=== PATIENT | male | born 1975 | race Caucasian/White ===

== ENCOUNTER 2016-06-30 12:40 | Inpatient (IN) | payer OTHER ==
[~2016-06-30] VITALS: Ht 180.3 cm; Wt 95.4 kg
--- NOTE | ~2016-06-30 | EKG ---
[place], [place] ELECTROCARDIOGRAM REPORT NAME: JESSICA CARPENTER UNIT #: [id number] ROOM: 406 DOCTOR: MARITA SORIA MD BIRTHDATE: [birth year] DOS: 06/30/2016 TIME: 13:05 Normal sinus rhythm at rate of 75, indeterminant access, poor precordial R-wave progression, abnormal electrocardiogram. MARITA SORIA MD CM:EKGRPT:ELECTROCARDIOGRAM REPORT [id number] MARITA SORIA MD
--- NOTE | ~2016-06-30 | ST ---
[place], [place] EXERCISE STRESS TEST REPORT NAME: JESSICA CARPENTER [facility] #: [id number] UNIT #: [id number] ROOM: 406 DOCTOR: MARITA SORIA MD BIRTHDATE: [birth year] DOS: 07/01/2016 Study was done. INDICATIONS: Chest pain. PROCEDURE: The patient walked on a full Guevara protocol for 12 minutes with an additional 45 seconds at stage 5. The resting heart rate of 74 kevon to a peak of 150, which represented 84% of his maximum predicted heart rate. The resting blood pressure of 110/70 kevon to 154/72. The patient did not reproduce his chest pain. He stopped for fatigue. He achieved a workload of 12.5 mets. No diagnostic electrocardiographic changes were seen. One minute prior to completion of the exercise protocol, he was given radionuclide intravenously. IMPRESSION: 1. Excellent exercise capacity without chest pain or diagnostic electrocardiographic changes. 2. Green treadmill score 12.8 consistent with a low probability of cardiac events in the next year. 3. Radionuclide injected. Please see the separate imaging report for further details of the patient's stress test results. MARITA SORIA MD CM:STRESS:EXERCISE STRESS TEST REPORT [id number] MARITA SORIA MD
--- NOTE | ~2016-06-30 | PR ---
[place], [place] PROGRESS NOTE [facility] [id number] UNIT #: [id number] ROOM: 406 DOCTOR: MARITA SORIA MD BIRTHDATE: [birth year] DOS: 07/01/2016 CARDIOLOGY FOLLOWUP NOTE SUBJECTIVE: The patient was seen at the cardiology stress test room today July 01, 2016, prior to his stress test. The patient has not had any further chest pain since his admission. His serial troponin levels have been normal. Hemoglobin A1c is somewhat high at 9.6. PHYSICAL EXAMINATION: VITAL SIGNS: His pulse is 77 and regular, blood pressure 144/66. He is afebrile. He weighs 95.4 kilograms with a body mass index of 29.3. HEENT: Normocephalic, atraumatic. NECK: Supple. There is no jugular distention. Carotids are full. LUNGS: Respirations are unlabored. His chest is clear to auscultation and percussion. HEART: Has regular rhythm with an S4 gallop, but no S3. EXTREMITIES: Showed no edema. We did supervise an exercise stress test. The patient walked 12 minutes 45 seconds on a full Guevara protocol and achieved 84% of his maximum predicted heart rate. He stopped for fatigue and did not reproduce his chest pain. He did not have any electrocardiographic changes with exercise. The study was felt to be very low risk. Nuclear imaging is pending. IMPRESSIONS: 1. Headache, etiology to be determined. 2. Chest pain, no evidence for acute myocardial infarction. Thus far, the patient's stress test is very low risk. 3. History of acute inferior wall ST elevation RI in April of 2013, treated with angioplasty and stenting to the right coronary artery for 100% occlusion of the vessel. 4. History of tobacco abuse. PLAN: We will review the results of the stress test when they are available, but thus far he appears to have a very low risk for major adverse cardiac events in the near future. Probably we will recommend that he continue risk factor modification. We thank the hospitalist physicians for asking our advice regarding his care. [place], [place] PROGRESS NOTE NAME: JESSICA CARPENTER [facility] #: [id number] UNIT #: [id number] ROOM: 406 DOCTOR: MARITA SORIA MD BIRTHDATE: [birth year] MARITA SORIA MD CM:PNSTEPHEN [id number] MARITA SORIA MD 07/02/16 0932 interface
[~2016-06-30 12:40] MED LIST: AMOXICILLIN500 M2 PO; AMOXICILLIN500 MG PO; APIDRA100 U/ML SC; ASPIRIN ADULT L81 M1 PO; ASPIRIN ADULT L81 MG PO; ATORVASTATIN CA40 M1 PO; BAYER ASPIRIN C81 MG PO; CLEOCIN150 MG PO; CLINDAMYCIN150 MG PO; CLOPIDOGREL BIS75 MG PO; CLOPIDOGREL75 MG PO; HUMALOG 751 UNIT/0.0 IV; HUMALOG100 UNIT/1 SQ; HYDROCODONE BIT1 T11 PO; KETOROLAC10 MG PO; LANTUS100 U/ML SC; LEVEMIR FLEX100 U/ML SC; LEVEMIR100 U/ML SC; LIPITOR40 MG PO; LISINOPRIL5 MG PO; LOMOTIL 0.025 M1 TA1 PO; Lopressor25 MG PO; METOPROLOL SR25 MG PO; Motrin,Rufen800 MG PO; NOVOLIN R100 U/ML SC; PEPCID AC20 MG PO; PEPCID20 MG PO; TRAMADOL HCL50 MG PO; ZOFRAN ODT4 MG SL
[2016-06-30 12:45] VITALS: BP 153/76
[2016-06-30] MEDS ORDERED: LEVEMIR10 ML SC (12:46)
[2016-06-30 13:20] LABS: BASO # 0.1 10*3/uL (0.0-0.1); BASO % 0.6 % (0.0-1.0); EOS # 0.2 10*3/uL (0.0-0.4); EOS % 2.1 % (1.0-4.0); HEMATOCRIT 48.5 % (42.0-52.0); HEMOGLOBIN 16.7 g/dl (14.0-18.0); LYMPH # 2.5 10*3/uL (1.3-4.4); LYMPH % 23.1 % (27.0-41.0); MEAN CELL VOLUME 91.3 fl (80.0-94.0); MEAN CORPUSCULAR HGB 31.5 pg (27.0-31.0); MEAN CORPUSCULAR HGB CONC 34.4 g/dl (33.0-37.0); MEAN PLATELET VOLUME 10.3 fl (9.6-12.3); MONO # 0.7 10*3/uL (0.1-1.0); MONO % 6.2 % (3.0-9.0); NEUT # 7.2 10*3/uL (2.3-7.9); NEUT % 67.7 % (47.0-73.0); PLATELET COUNT AUTOMATED 250 10*3/uL (130-400); RED BLOOD COUNT 5.31 10*6/uL (4.50-5.90); RED CELL DISTRI WIDTH 12.6 % (0-14.5); WHITE BLOOD COUNT 10.7 10*3/uL (4.8-10.8)
[2016-06-30 13:22] LABS: BILIRUBIN NEGATIVE (NEGATIVE); BLOOD NEGATIVE (NEGATIVE); CLARITY CLEAR (CLEAR); COLOR YELLOW (YELLOW); GLUCOSE 3+ (NEGATIVE); KETONE NEGATIVE (NEGATIVE); LEUKO ESTERASE NEGATIVE (NEGATIVE); NITRITE NEGATIVE (NEGATIVE); PROTEIN NEGATIVE (NEGATIVE); UROBILINOGEN 0.2 E.U./dl (0.2-1.0)
[2016-06-30 13:28] LABS: INTERNATIONAL NORM RATIO 0.9 (2.0-3.5)
[2016-06-30 13:35] LABS: ALBUMIN 4.1 gm/dl (3.1-4.5); ALKALINE PHOSPHATASE 108 U/L (45-117); BILIRUBIN, TOTAL 0.6 mg/dl (0.2-1.0); BUN 13 mg/dl (7-24); CARBON DIOXIDE 30 mmol/L (21-32); CHLORIDE 99 mmol/L (98-107); CKMB 4.4 ng/ml (0.5-3.6); CPK 201 U/L (39-308); EST GLOM FILT AFRICAN AMERICAN > 60 ml/min; GLUCOSE 373 mg/dL (65-99); MAGNESIUM 2.1 mg/dL (1.5-2.1); POTASSIUM 4.7 mmol/L (3.5-5.1); SGOT/AST 19 IU/L (3-35); SGPT/ALT 34 U/L (12-78); SODIUM 135 mmol/L (136-145); TOTAL PROTEIN 7.4 gm/dL (6.4-8.2)
[2016-06-30 13:40] LABS: C-REACTIVE PROTEIN < 0.29 MG/DL (0-0.3); TROPONIN I < 0.015 ng/ml (<0.045)
[2016-06-30 13:44] LABS: EPITHELIAL CELLS 0-2; URINE REFLEX COMMENT NO (NO); WBC 0-2 wbc/hpf (0-5)
[2016-06-30 15:17] LABS: LA>2 REFLEX 2 HR DRAW NOW
[2016-06-30 15:19] VITALS: BP 142/78
[2016-06-30 15:40] VITALS: BP 157/74
[2016-06-30 16:00] VITALS: BP 117/55
[2016-06-30 20:00] VITALS: BP 127/57
[2016-06-30 20:13] LABS: CPK 180 U/L (39-308)
[2016-06-30 20:14] LABS: CKMB 3.5 ng/ml (0.5-3.6)
[2016-06-30 20:19] LABS: TROPONIN I < 0.015 ng/ml (<0.045)
[2016-07-01] VITALS: BP 121/61
[2016-07-01 02:20] LABS: CKMB 3.4 ng/ml (0.5-3.6); CPK 171 U/L (39-308)
[2016-07-01 02:23] LABS: TROPONIN I < 0.015 ng/ml (<0.045)
[2016-07-01 07:40] LABS: BASO # 0.1 10*3/uL (0.0-0.1); BASO % 0.4 % (0.0-1.0); EOS # 0.3 10*3/uL (0.0-0.4); HEMATOCRIT 46.5 % (42.0-52.0); HEMOGLOBIN 15.8 g/dl (14.0-18.0); LYMPH # 2.3 10*3/uL (1.3-4.4); LYMPH % 16.5 % (27.0-41.0); MEAN CELL VOLUME 91.9 fl (80.0-94.0); MEAN CORPUSCULAR HGB 31.2 pg (27.0-31.0); MEAN PLATELET VOLUME 10.2 fl (9.6-12.3); MONO # 1.2 10*3/uL (0.1-1.0); NEUT # 9.9 10*3/uL (2.3-7.9); NEUT % 71.8 % (47.0-73.0); PLATELET COUNT AUTOMATED 239 10*3/uL (130-400); RED BLOOD COUNT 5.06 10*6/uL (4.50-5.90); RED CELL DISTRI WIDTH 12.9 % (0-14.5); WHITE BLOOD COUNT 13.8 10*3/uL (4.8-10.8)
[2016-07-01 08:00] VITALS: BP 137/59
[2016-07-01 08:11] LABS: BUN 16 mg/dl (7-24); CARBON DIOXIDE 27 mmol/L (21-32); CHLORIDE 103 mmol/L (98-107); CHOLESTEROL 164 mg/dL (<200); EST GLOM FILT AFRICAN AMERICAN > 60 ml/min; FREE T4 0.99 ng/dl (0.76-1.46); GLUCOSE 137 mg/dL (65-99); HDL CHOLESTEROL 48 mg/dl (40-60); LDL CHOLESTEROL 99 mg/dL (9-159); POTASSIUM 4.3 mmol/L (3.5-5.1); SODIUM 138 mmol/L (136-145); TRIGLYCERIDES 85 mg/dl (<150); VLDL CHOLESTEROL 17 mg/dL (6-40)
[2016-07-01 08:35] LABS: HEMOGLOBIN A1c 9.6 % (4.8-5.6)
[2016-07-01 08:46] LABS: VITAMIN D, 25-HYDROXY 30.2 ng/mL (30-100)
[2016-07-01 08:47] LABS: FOLIC ACID 19.39 ng/mL (>5.38)
[2016-07-01 12:00] VITALS: BP 141/66
[2016-07-01 16:00] VITALS: BP 160/81
== END 2016-07-01 17:33 | disposition home or self-care (01) | DRG 313 ==
LOC: ED 12:40 → EDHOLD 14:24 → 4E 15:16
PROVIDERS: Emergency Medicine; Internal Medicine Hospice and Palliative Medicine
PROC: 4A02XM4 Measurement of Cardiac Total Activity, External Approach (ICD-10-PCS; principal; 2016-07-01)
PROC: 3E033HZ Introduction of Radioactive Substance into Peripheral Vein, Percutaneous Approach (ICD-10-PCS; principal; 2016-07-01)
DX: R07.9 Chest pain, unspecified (principal); I25.2 Old myocardial infarction; E87.2 Acidosis; E87.1 Hypo-osmolality and hyponatremia; R51 Headache; I10 Essential (primary) hypertension; I25.10 Atherosclerotic heart disease of native coronary artery without angina pectoris; F17.200 Nicotine dependence, unspecified, uncomplicated; E78.00 Pure hypercholesterolemia, unspecified; K02.9 Dental caries, unspecified; Z90.49 Acquired absence of other specified parts of digestive tract; Z95.5 Presence of coronary angioplasty implant and graft; Z82.49 Family history of ischemic heart disease and other diseases of the circulatory system; Z82.5 Family history of asthma and other chronic lower respiratory diseases; Z83.3 Family history of diabetes mellitus; Z79.82 Long term (current) use of aspirin; Z79.4 Long term (current) use of insulin; Z79.899 Other long term (current) drug therapy

== ENCOUNTER → 2016-08-04 | Outpatient (CLI) | payer OTHER ==
[~2016-08-04] MED LIST changes: +LEVEMIR10 ML SC
== END ==
LOC: MRI 07-27 14:00
DX: R41.3 Other amnesia (principal); R41.0 Disorientation, unspecified; I10 Essential (primary) hypertension; J34.1 Cyst and mucocele of nose and nasal sinus

== ENCOUNTER → 2016-08-05 | Outpatient (CLI) | payer OTHER | LOC: MRI 11:00 → CP 11:31 | DX: R41.3 Other amnesia (principal) ==

== ENCOUNTER 2016-11-25 19:33 | Emergency (ER) | payer OTHER ==
[~2016-11-25] VITALS: Ht 180.3 cm; Wt 99.8 kg
[2016-11-25 20:05] LABS: BASO # 0.1 10*3/uL (0.0-0.1); BASO % 0.7 % (0.0-1.0); EOS # 0.3 10*3/uL (0.0-0.4); EOS % 2.4 % (1.0-4.0); HEMATOCRIT 45.5 % (42.0-52.0); HEMOGLOBIN 15.5 g/dl (14.0-18.0); LYMPH # 3.3 10*3/uL (1.3-4.4); LYMPH % 28.5 % (27.0-41.0); MEAN CELL VOLUME 90.5 fl (80.0-94.0); MEAN CORPUSCULAR HGB 30.8 pg (27.0-31.0); MEAN CORPUSCULAR HGB CONC 34.1 g/dl (33.0-37.0); MEAN PLATELET VOLUME 9.9 fl (9.6-12.3); MONO # 1.1 10*3/uL (0.1-1.0); MONO % 9.7 % (3.0-9.0); NEUT # 6.6 10*3/uL (2.3-7.9); NEUT % 58.3 % (47.0-73.0); PLATELET COUNT AUTOMATED 273 10*3/uL (130-400); RED BLOOD COUNT 5.03 10*6/uL (4.50-5.90); RED CELL DISTRI WIDTH 12.2 % (0-14.5); WHITE BLOOD COUNT 11.4 10*3/uL (4.8-10.8)
[2016-11-25 20:26] LABS: ALBUMIN 4.2 gm/dl (3.1-4.5); ALKALINE PHOSPHATASE 111 U/L (45-117); BUN 20 mg/dl (7-24); CHLORIDE 98 mmol/L (98-107); CREATININE 1.26 mg/dL (0.70-1.30); POTASSIUM 3.8 mmol/L (3.5-5.1); SGOT/AST 15 IU/L (3-35); SGPT/ALT 37 U/L (12-78); SODIUM 135 mmol/L (136-145); TOTAL PROTEIN 7.6 gm/dL (6.4-8.2)
[2016-11-25 20:27] LABS: TROPONIN I < 0.015 ng/ml (<0.045)
== END 2016-11-25 22:10 | disposition left against medical advice (07) ==
LOC: ED 19:33
PROVIDERS: Student in an Organized Health Care Education/Training Program
DX: R07.9 Chest pain, unspecified (principal); E11.65 Type 2 diabetes mellitus with hyperglycemia; F17.200 Nicotine dependence, unspecified, uncomplicated; E78.00 Pure hypercholesterolemia, unspecified; I25.2 Old myocardial infarction; I25.10 Atherosclerotic heart disease of native coronary artery without angina pectoris; I10 Essential (primary) hypertension; Z90.49 Acquired absence of other specified parts of digestive tract; Z95.5 Presence of coronary angioplasty implant and graft; Z79.899 Other long term (current) drug therapy; Z79.82 Long term (current) use of aspirin; Z79.4 Long term (current) use of insulin

== ENCOUNTER 2017-05-17 06:29 | Inpatient (IN) | payer OTHER ==
[2017-05-17] VITALS (12 sets, daily range): BP systolic 130–169; BP diastolic 58–83
[~2017-05-17] VITALS: Ht 177.8 cm; Wt 93.4 kg
--- NOTE | ~2017-05-17 | CON ---
[place], [place] REPORT OF CONSULTATION NAME: JESSICA CARPENTER [facility] #: [id number] UNIT #: [id number] ROOM: 504 DOCTOR: ANIL CHOUDHURY MD BIRTHDATE: [birth year] DOS: 05/18/2017 PULMONARY CONSULTATION EVALUATION AND MANAGEMENT CONSULTATION REQUESTED BY: Hospitalist services. REASON FOR CONSULTATION: Assessment of the current diabetic ketoacidosis management. HISTORY OF PRESENT ILLNESS: This is a 42-year-old white male with last known history of type 2 diabetes mellitus, insulin requiring, at the age of 20-25 years old taking insulin Levemir as well as regular insulin. The patient underwent recent teeth extraction, which were described to be infected and has been ordered the antibiotic as clindamycin and amoxicillin by the dentist. The patient stated that he was noted with symptoms of generalized weakness and fatigue for this patient as well as nausea and vomiting. He could not take his antibiotic and stated he has not injected his insulin as well as a regular insulin, but was taking the Levemir insulin. The patient was noted with progressive increase in his mental status changes for this patient and lethargy. The patient was noted with vomiting intermittently as well. He has been assessed in the Emergency Room with diagnosis of acute diabetic ketoacidosis was established, and the patient was admitted to the hospital for further medical management. The patient has been started with insulin drip with changes of the drip for the patient made based on the progression with diabetic ketoacidosis. The insulin drip for the patient were discontinued last night as the diabetic ketoacidosis resolved and he was switched to his long-acting and short-acting insulin coverage after that. His nausea and vomiting seemed to be resolved completely at this time. The patient has not been noted any symptoms of abdominal pain. REVIEW OF SYSTEMS: CONSTITUTIONAL: Fatigue and tiredness noted without symptoms of fever or chills. EYES: Denies any burning, redness, or tenderness. EARS, NOSE, THROAT SYMPTOMS: Denies sore throat, hoarseness, otalgia, postnasal drainage, or epistaxis. Denies any dental pain. Still has a suture in place and stated that it needs to be removed as per dentist today. The patient denied any jaw pain. Has not reported any pain or swelling on the cheek. CARDIOVASCULAR: Denies angina pain, edema or pain in lower extremities. GASTROINTESTINAL: Dysphagia, nausea, vomiting, diarrhea, abdominal pain, hematemesis, melena, hematochezia at this time, but reported with the nausea and vomiting the patient at home that seemed to be resolved after hospitalization. GENITOURINARY: No dysuria, suprapubic pain, hematuria. MUSCULOSKELETAL: No acute joint pain, redness or tenderness or deformities. CENTRAL NERVOUS SYSTEM: The patient has not been reported any seizure at home. Noted changes in mental status. There were no focal neurologic deficits reported with symptoms of headache or diplopia reported. Remaining review of systems of the patient was completed that was noted all negative. [place], [place] REPORT OF CONSULTATION NAME: JESSICA CARPENTER UNIT #: [id number] ROOM: [facility] DOCTOR: KAM MURPHY MD,ANIL BIRTHDATE: [birth year] PAST MEDICAL HISTORY: 1. Coronary artery disease. 2. Essential hypertension. 3. Coronary artery disease with past myocardial infarction. 4. Hypercholesterolemia. 5. Type 2 insulin requiring diabetes mellitus. 6. Recent impacted teeth for the patient, which has been removed by the dentist last . PAST SURGICAL HISTORY: 1. Appendectomy. 2. Teeth extraction. 3. Cardiac catheterization. 4. Cholecystectomy. 5. Coronary artery stents insertion with cardiac catheterization. SOCIAL HISTORY: The patient stated that he is , lives at home, has 2 children, and currently lives with girlfriend. Denies any history of alcohol use, illicit drug use. Denies any history of alcohol dependence. He had been noted history of tobacco use with a pack of cigarettes per day. FAMILY HISTORY: The patient's father 67-year-old with history of COPD. Mother 65-year-old with history of diabetes mellitus. One of the brother at the age 4040 years old with complication of acute myocardial infarction. HOME MEDICATIONS: Listed as use of aspirin, Lipitor, Levemir insulin, lisinopril, and metoprolol. DRUG ALLERGY: REPORTED ALLERGY TO THE PENICILLIN, BUT THE PATIENT COULD TAKE THE AMOXICILLIN. ALLERGY TO THE PENICILLIN SIDE EFFECTS WERE NOT KNOWN STATE HAS BEEN TOLD BY HIS FAMILY MEMBERS AND HIS MOM. PHYSICAL EXAMINATION: GENERAL: A 42-year-old white male, currently sitting on the bed without any acute distress this morning of assessment. The patient's height was recorded on admission 5 feet 10 inches, weight of 93 kg, BMI 29.5. VITAL SIGNS: Normal temperature of the patient noted since admission, respiratory rate of 28-16, heart rate of 118, sinus tachycardia at 81 this morning, blood pressure 149/69-122/72 this morning. The intake for the patient recorded as 5300 mL, output 700 mL. Pulse oxygen saturation on room air was 96% saturation. HEENT: Head was atraumatic. Eyes nonicterus. Oral mucosa was noted moist with sutures are noted in the teeth for this patient as well. There was no obvious abscess or drainage. NECK: Supple. CARDIOVASCULAR: S1, S2 is audible. LUNGS: Noted clear of any wheezing or crackles. Breaths are noted [id number] diminished bilaterally. ABDOMEN: Soft with [id number] obesity without any tenderness. [place], [place] REPORT OF CONSULTATION NAME: JESSICA CARPENTER UNIT #: [id number] ROOM: [facility] DOCTOR: ANIL CHOUDHURY MD BIRTHDATE: [birth year] EXTREMITIES: The patient noted without any edema, clubbing, or cyanosis. CENTRAL NERVOUS SYSTEM: Cranial nerves 2-12 intact. No focal deficit. MUSCULOSKELETAL: Without any acute deformities. SKIN: No lesions or rashes. LABORATORY DATA: The patient's lactic acid on admission noted 4.1, follow up lactic acid 2.3 and at 1.7. CBC of the patient on admission yesterday, WBC count severely elevated at 38.1, hemoglobin and hematocrit normal, and platelet count 413,000. CMP of the patient of 05/17/2017 on admission, glucose at 757, BUN 32, creatinine 2.16. Sodium 131, potassium 5.3, chloride of 89. The anion gap was noted as 37 on admission with that labs. Troponin was normal. The reflux glucose 757. Ketone for the patient noted positive 1:6 dilution. The arterial blood gas of the patient, pH of 7.16, pCO2 of 23, pO2 of 118 were done in the Emergency Room on room air. The BMP of the patient following that at 10:18 a.m. glucose 527, BUN 34, creatinine 2.12. CO2 of 13. At that time, the anion gap for this patient was still noted elevated at 24. Several of the chemistries was done for the patient; last chemistry at that time the patient noted with the resolution diabetic ketoacidosis, shows glucose 116, BUN 26, creatinine 1.32. CO2 was normal. Potassium normal at 4.3 and sodium 142. The alkaline phosphatase of 153. The CBC of this morning, WBC 35.4, hemoglobin and hematocrit normal, platelet count were normal. Hemoglobin A1c with the patient noted 9.0. The C-reactive protein was normal. ESR was noted as 5. The patient had a CT scan of the abdomen and pelvis that was done in the Emergency Room yesterday was noted essentially normal study. One view chest x-ray of the patient does not show any acute pulmonary infiltration. IMPRESSION: 1. The patient who has been currently admitted to the hospital noted with severe acute diabetic ketoacidosis with possibly of underlying infection to the teeth with abscess formation can be completely excluded as a cause. 2. Acute kidney injury secondary to acute diabetic ketoacidosis. 3. Severe acidosis and lactic acidosis combination from infection and volume contraction would be very likely. 4. The patient with history of insulin requiring type 2 diabetes mellitus. 5. History of chronic nicotine abuse with clinical suspicion of chronic obstructive pulmonary disease as well, but there was no finding of acute exacerbation. The patient does not have past pulmonary function test performed. 6. History of coronary artery disease at younger age with the patient of myocardial infarction as well that in one of the brothers at age of 4040 years old from acute myocardial infarction. 7. Mild obesity as well. PLAN OF TREATMENT: Monitor culture results for the patient. Obtain the x-ray of the jaw for this patient at first step and if necessary CT scan to exclude any abscess in the jaw area. Empirical use of the antibiotic at this time as clindamycin intravenously was started. The patient will be continued on insulin coverage with the short acting and long-acting insulin, close monitoring of the blood glucose for the patient to be continued. The patient's blood glucose was noted at 8:00 a.m. at 281, prior to that was at 211. Prevent any hypoglycemia. Supportive therapy, plan of management. If any abscess found for this patient [place], [place] REPORT OF CONSULTATION NAME: JESSICA CARPENTER UNIT #: [id number] ROOM: [facility] DOCTOR: ANIL CHOUDHURY MD BIRTHDATE: [birth year] in the deep area or in the jaw, the patient most likely will require consultation by the ENT for further medical management. IV fluids at this time will be completely discontinued, which was switched to the half normal saline last night as the patient start eating food with diabetic diet. Deep vein thrombosis prophylaxis. Total time pulmonary critical care evaluation and management of the patient today was 37 minutes. ANIL HUMPHREY MD CM:CONSTR:REPORT OF CONSULTATION 1329 05/18/171951 interface
--- NOTE | ~2017-05-17 | PR ---
[place], [place] PROGRESS NOTE NAME: JESSICA CARPENTER [facility] #: [id number] UNIT #: [id number] ROOM: 504 DOCTOR: KAM MURPHY MD,ANIL BIRTHDATE: [birth year] DOS: 05/19/2017 SUBJECTIVE: The patient noted comfortable at this time. He is transferred to medical floor after resolution of diabetic ketoacidosis. He has not reported any symptoms of hemoptysis or any chest pain. The patient has x-rays of the jaw completed yesterday. Facial bone does not show any evidence of osteomyelitis or other abnormalities including suspected abscess. The patient denies symptoms of nausea or vomiting at this time, shortness of breath, coughing, sputum expectoration, headache, dizziness, or fatigue. The remaining systems were reviewed of the patient, they were noted all negative. OBJECTIVE: VITAL SIGNS: For the patient, which has been recorded shows a normal temperature, respiratory rate of 18, heart rate 68, blood pressure 135/72. The pulse oxygen saturation was recorded as 98% on room air. HEENT: Examination shows head was atraumatic. Eyes nonicterus. NECK: Supple. Oral mucosa was moist. There were no signs of active infection or drainage in the mouth. Previously removed teeth area appeared to be healing well. CARDIOVASCULAR: S1, S2 is audible. LUNGS: The patient was noted without any wheezing or crackles at the present time. ABDOMEN: Soft. Mild to moderate obesity. Bowel sounds present. EXTREMITIES: Without any edema. SKIN: Visible skin, no lesions or rashes. MUSCULOSKELETAL: Without any acute deformities. CENTRAL NERVOUS SYSTEM: Intact. LABORATORY DATA: Reviewed of the lab of the patient for today's visit, x-ray of the facial bones was noted essentially without any radiologic abnormality. CBC of the patient that was done on 05/19/2017, WBC count 17.8, hemoglobin 12.7, hematocrit 37.8, platelet count 126,000. The CMP of the patient this morning, glucose 122, BUN normal, creatinine normal. IMPRESSION: 1. The patient with leukocytosis, which seemed to be resolving partly, may be resulting from diabetic ketoacidosis, volume contraction, and possible superficial infection of the patient with previous teeth infection of the patient as well. 2. The patient with moderate obesity as well. 3. Resolution of the metabolic acidosis of the patient completely. PLAN OF MANAGEMENT: Continue with the antibiotics for this patient, bronchodilators. Medical management of the diabetes mellitus to be continued with adjustment of his insulin coverage. Supportive care, other therapy, plan of management. Usual care. DVT prophylaxis. Consideration for possible home discharge on oral medication might be done tomorrow depending on further improvement in the overall medical status. [place], [place] PROGRESS NOTE NAME: JESSICA CARPENTER UNIT #: [id number] ROOM: [facility] DOCTOR: ANIL CHOUDHURY MD BIRTHDATE: [birth year] ANIL HUMPHREY MD CM:PNTRANS [id number] ANIL MURPHY MD 05/19/17 2315 interface
--- NOTE | ~2017-05-17 | EKG ---
[place], [place] ELECTROCARDIOGRAM REPORT NAME: JESSICA CARPENTER UNIT #: [id number] ROOM: 504 DOCTOR: KAM MURPHY MD,ANIL BIRTHDATE: [birth year] DOS: 05/17/2017 TIME: 6:59 a.m. INTERPRETATION: Sinus tachycardia noted, heart rate 118 beats per minute with peak T-wave. The LVH criteria could be met for this patient to chest leads assessment. IMPRESSION: The tachycardia would be considered as a sinus tachycardia. ANIL HUMPHREY MD CM:EKGRPT:ELECTROCARDIOGRAM REPORT 1212 1312 ANLI MURPHY MD
[2017-05-17 06:55] LABS: HEMATOCRIT 47.7 % (42.0-52.0); HEMOGLOBIN 16.6 g/dl (14.0-18.0); MEAN CELL VOLUME 93.2 fl (80.0-94.0); MEAN CORPUSCULAR HGB 32.4 pg (27.0-31.0); MEAN CORPUSCULAR HGB CONC 34.8 g/dl (33.0-37.0); MEAN PLATELET VOLUME 10.5 fl (9.6-12.3); PLATELET COUNT AUTOMATED 413 10*3/uL (130-400); RED BLOOD COUNT 5.12 10*6/uL (4.50-5.90); RED CELL DISTRI WIDTH 12.9 % (0-14.5)
[2017-05-17 07:13] LABS: TOTAL CELLS COUNTED 100 #CELLS
[2017-05-17 07:14] LABS: ALBUMIN 4.5 gm/dl (3.1-4.5); ALKALINE PHOSPHATASE 192 U/L (45-117); BUN 32 mg/dl (7-24); BURR CELLS FEW; CHLORIDE 89 mmol/L (98-107); CREATININE 2.16 mg/dL (0.70-1.30); PLATELET SUFFICIENCY HIGH (NORMAL); POTASSIUM 5.3 mmol/L (3.5-5.1); SGOT/AST 25 IU/L (3-35); SGPT/ALT 52 U/L (12-78); SODIUM 131 mmol/L (136-145); TOTAL PROTEIN 8.2 gm/dL (6.4-8.2)
[2017-05-17 07:16] LABS: WHITE BLOOD COUNT 38.1 10*3/uL (4.8-10.8)
[2017-05-17 07:20] LABS: TROPONIN I < 0.015 ng/ml (<0.045)
[2017-05-17 07:58] LABS: ACT PARTIAL THROMBO TIME 21.7 SECONDS (20.8-31.5)
[2017-05-17 08:13] LABS: ABG O2 SATURATION 97.9 % (95-97); ARTERIAL BLOOD GAS PCO2 23.1 mmHg (35-45)
[2017-05-17 08:15] LABS: ABG BASE EXCESS -19.8 mmol/L (-2.0-2.0)
[2017-05-17 08:16] LABS: ARTERIAL BLOOD GAS PH 7.165 (7.35-7.45)
[2017-05-17 10:50] LABS: CREATININE 2.12 mg/dL (0.70-1.30)
[2017-05-17 14:52] LABS: ABG BASE EXCESS -7.2 mmol/L (-2.0-2.0); ABG HCO3 17.2 mmol/l (22-26); ABG O2 SATURATION 98.4 % (95-97); ARTERIAL BLOOD GAS PCO2 33.1 mmHg (35-45); ARTERIAL BLOOD GAS PH 7.335 (7.35-7.45)
[2017-05-17 15:13] LABS: ALKALINE PHOSPHATASE 173 U/L (45-117); BUN 32 mg/dl (7-24); CHLORIDE 105 mmol/L (98-107); CREATININE 1.64 mg/dL (0.70-1.30); FREE T4 1.19 ng/dl (0.76-1.46); PHOSPHOROUS 2.4 mg/dL (2.5-4.9); SGOT/AST 16 IU/L (3-35); SGPT/ALT 43 U/L (12-78); SODIUM 141 mmol/L (136-145); TOTAL PROTEIN 7.7 gm/dL (6.4-8.2)
[2017-05-17 15:16] LABS: TROPONIN I < 0.015 ng/ml (<0.045)
[2017-05-17 15:19] LABS: THYROID STIM HORMONE (HS) 0.845 uIU/ml (0.358-4.75)
[2017-05-17 16:55] LABS: HEMATOCRIT 45.4 % (42.0-52.0); HEMOGLOBIN 16.1 g/dl (14.0-18.0); MEAN CELL VOLUME 90.3 fl (80.0-94.0); MEAN CORPUSCULAR HGB CONC 35.5 g/dl (33.0-37.0); MEAN PLATELET VOLUME 9.8 fl (9.6-12.3); PLATELET COUNT AUTOMATED 391 10*3/uL (130-400); RED BLOOD COUNT 5.03 10*6/uL (4.50-5.90); RED CELL DISTRI WIDTH 13.2 % (0-14.5); WHITE BLOOD COUNT 33.7 10*3/uL (4.8-10.8)
[2017-05-17 17:12] LABS: ALBUMIN 4.1 gm/dl (3.1-4.5); CREATININE 1.72 mg/dL (0.70-1.30); PHOSPHOROUS 2.3 mg/dL (2.5-4.9); POTASSIUM 4.1 mmol/L (3.5-5.1); TOTAL PROTEIN 7.6 gm/dL (6.4-8.2); TROPONIN I 0.018 ng/ml (<0.045)
[2017-05-17 17:39] LABS: TOTAL CELLS COUNTED 100 #CELLS
[2017-05-17 17:41] LABS: PLATELET SUFFICIENCY HIGH (NORMAL)
[2017-05-17 18:40] LABS: BILIRUBIN 1+ (NEGATIVE); BLOOD TRACE-LYSED (NEGATIVE); CLARITY CLEAR (CLEAR); COLOR YELLOW (YELLOW); GLUCOSE 2+ (NEGATIVE); KETONE 3+ (NEGATIVE); LEUKO ESTERASE NEGATIVE (NEGATIVE); NITRITE NEGATIVE (NEGATIVE); PH 5.5 (5.0-9.0); SPECIFIC GRAVITY 1.025 (1.005-1.030); UROBILINOGEN 0.2 E.U./dl (0.2-1.0)
[2017-05-17 18:51] LABS: BACTERIA TRACE; HYALINE CAST TNTC
[2017-05-17 19:27] LABS: CREATININE 1.69 mg/dL (0.70-1.30); POTASSIUM 4.4 mmol/L (3.5-5.1); TOTAL PROTEIN 7.3 gm/dL (6.4-8.2)
[2017-05-17 23:16] LABS: ALKALINE PHOSPHATASE 153 U/L (45-117); BUN 26 mg/dl (7-24); CHLORIDE 107 mmol/L (98-107); CREATININE 1.32 mg/dL (0.70-1.30); PHOSPHOROUS 2.5 mg/dL (2.5-4.9); POTASSIUM 4.3 mmol/L (3.5-5.1); SGOT/AST 24 IU/L (3-35); SGPT/ALT 40 U/L (12-78); SODIUM 142 mmol/L (136-145); TOTAL PROTEIN 7.1 gm/dL (6.4-8.2)
[2017-05-18 00:05] VITALS: BP 120/58
[2017-05-18 00:51] LABS: ALBUMIN 4.1 gm/dl (3.1-4.5); ALKALINE PHOSPHATASE 154 U/L (45-117); BUN 27 mg/dl (7-24); CHLORIDE 107 mmol/L (98-107); CREATININE 1.54 mg/dL (0.70-1.30); POTASSIUM 4.5 mmol/L (3.5-5.1); SGOT/AST 20 IU/L (3-35); SGPT/ALT 40 U/L (12-78); SODIUM 142 mmol/L (136-145); TOTAL PROTEIN 7.3 gm/dL (6.4-8.2)
[2017-05-18 04:00] VITALS: BP 138/62
[2017-05-18 05:38] LABS: ALBUMIN 3.8 gm/dl (3.1-4.5); ALKALINE PHOSPHATASE 142 U/L (45-117); BUN 25 mg/dl (7-24); CHLORIDE 105 mmol/L (98-107); CHOLESTEROL 107 mg/dL (<200); CREATININE 1.37 mg/dL (0.70-1.30); HDL CHOLESTEROL 38 mg/dl (40-60); LDL CHOLESTEROL 53 mg/dL (9-159); POTASSIUM 4.3 mmol/L (3.5-5.1); SGOT/AST 19 IU/L (3-35); SGPT/ALT 35 U/L (12-78); SODIUM 141 mmol/L (136-145); TOTAL PROTEIN 6.9 gm/dL (6.4-8.2); TRIGLYCERIDES 79 mg/dl (<150); VLDL CHOLESTEROL 16 mg/dL (6-40)
[2017-05-18 05:59] LABS: HEMATOCRIT 43.6 % (42.0-52.0); HEMOGLOBIN 14.8 g/dl (14.0-18.0); MEAN CORPUSCULAR HGB 31.7 pg (27.0-31.0); MEAN CORPUSCULAR HGB CONC 33.9 g/dl (33.0-37.0); MEAN PLATELET VOLUME 10.4 fl (9.6-12.3); PLATELET COUNT AUTOMATED 317 10*3/uL (130-400); RED BLOOD COUNT 4.67 10*6/uL (4.50-5.90); WHITE BLOOD COUNT 35.4 10*3/uL (4.8-10.8)
[2017-05-18 06:04] LABS: MEAN CELL VOLUME 93.4 fl (80.0-94.0)
[2017-05-18 06:31] LABS: TOTAL CELLS COUNTED 100 #CELLS
[2017-05-18 06:32] LABS: BURR CELLS FEW; PLATELET SUFFICIENCY NORMAL (NORMAL)
[2017-05-18 08:00] VITALS: BP 120/60
[2017-05-18 12:00] VITALS: BP 122/72
[2017-05-18 16:00] VITALS: BP 120/76
[2017-05-18 20:00] VITALS: BP 149/78
[2017-05-19] VITALS: BP 140/79
[2017-05-19 05:54] LABS: BASO % 0.2 % (0.0-1.0); EOS # 0.1 10*3/uL (0.0-0.4); EOS % 0.8 % (1.0-4.0); HEMATOCRIT 37.8 % (42.0-52.0); LYMPH # 3.2 10*3/uL (1.3-4.4); LYMPH % 18.2 % (27.0-41.0); MEAN CELL VOLUME 92.6 fl (80.0-94.0); MEAN CORPUSCULAR HGB 31.1 pg (27.0-31.0); MEAN CORPUSCULAR HGB CONC 33.6 g/dl (33.0-37.0); MONO # 1.4 10*3/uL (0.1-1.0); MONO % 7.8 % (3.0-9.0); NEUT # 12.9 10*3/uL (2.3-7.9); NEUT % 72.5 % (47.0-73.0); PLATELET COUNT AUTOMATED 226 10*3/uL (130-400); RED BLOOD COUNT 4.08 10*6/uL (4.50-5.90); RED CELL DISTRI WIDTH 13.5 % (0-14.5); WHITE BLOOD COUNT 17.8 10*3/uL (4.8-10.8)
[2017-05-19 06:00] LABS: HEMOGLOBIN 12.7 g/dl (14.0-18.0)
[2017-05-19 06:13] LABS: ALBUMIN 3.3 gm/dl (3.1-4.5); ALKALINE PHOSPHATASE 125 U/L (45-117); CHLORIDE 100 mmol/L (98-107); CREATININE 1.01 mg/dL (0.70-1.30); POTASSIUM 3.7 mmol/L (3.5-5.1); SGOT/AST 22 IU/L (3-35); SGPT/ALT 34 U/L (12-78); SODIUM 137 mmol/L (136-145); TOTAL PROTEIN 6.2 gm/dL (6.4-8.2)
[2017-05-19 06:14] LABS: BUN 15 mg/dl (7-24)
[2017-05-19 08:00] VITALS: BP 135/73
[2017-05-19 12:00] VITALS: BP 146/83
[2017-05-19] MEDS ORDERED: CLEOCIN HCL300 MG PO (13:04)
[2017-05-19] MEDS ORDERED: VITAMIN D31000 UNIT PO (13:04)
== END 2017-05-19 13:34 | disposition home or self-care (01) | DRG 637 ==
LOC: ED 06:29 → EDHOLD 07:25 → ED 07:25 → ICCU 11:31 → EDHOLD 11:31 → ICCU 11:36 → 5E 05-18 17:31
PROVIDERS: Emergency Medicine; Internal Medicine; Internal Medicine Hospice and Palliative Medicine; Internal Medicine Nephrology; Student in an Organized Health Care Education/Training Program
PROC: 05HY33Z Insertion of Infusion Device into Upper Vein, Percutaneous Approach (ICD-10-PCS; principal; 2017-05-17)
DX: E10.10 Type 1 diabetes mellitus with ketoacidosis without coma (principal); N17.0 Acute kidney failure with tubular necrosis; R65.10 Systemic inflammatory response syndrome (SIRS) of non-infectious origin without acute organ dysfunction; E83.51 Hypocalcemia; E10.649 Type 1 diabetes mellitus with hypoglycemia without coma; E83.39 Other disorders of phosphorus metabolism; I25.10 Atherosclerotic heart disease of native coronary artery without angina pectoris; E66.9 Obesity, unspecified; D47.3 Essential (hemorrhagic) thrombocythemia; D72.821 Monocytosis (symptomatic); I10 Essential (primary) hypertension; F17.200 Nicotine dependence, unspecified, uncomplicated; E78.00 Pure hypercholesterolemia, unspecified; Z79.4 Long term (current) use of insulin; Z79.82 Long term (current) use of aspirin; Z79.899 Other long term (current) drug therapy; I25.2 Old myocardial infarction; Z90.49 Acquired absence of other specified parts of digestive tract; Z95.818 Presence of other cardiac implants and grafts; Z83.3 Family history of diabetes mellitus; Z83.6 Family history of other diseases of the respiratory system; Z82.49 Family history of ischemic heart disease and other diseases of the circulatory system; Z88.0 Allergy status to penicillin; Z68.29 Body mass index [BMI] 29.0-29.9, adult

== ENCOUNTER 2017-07-13 23:11 | Emergency (ER) | payer OTHER ==
[~2017-07-13] VITALS: Ht 177.8 cm; Wt 98.4 kg
[~2017-07-13 23:11] MED LIST changes: +CLEOCIN HCL300 MG PO; +VITAMIN D31000 UNIT PO
[2017-07-14 00:18] LABS: HEMATOCRIT 45.5 % (42.0-52.0); HEMOGLOBIN 15.3 g/dl (14.0-18.0); MEAN CELL VOLUME 93.8 fl (80.0-94.0); MEAN CORPUSCULAR HGB 31.5 pg (27.0-31.0); MEAN CORPUSCULAR HGB CONC 33.6 g/dl (33.0-37.0); PLATELET COUNT AUTOMATED 267 10*3/uL (130-400); RED BLOOD COUNT 4.85 10*6/uL (4.50-5.90); RED CELL DISTRI WIDTH 12.8 % (0-14.5); WHITE BLOOD COUNT 26.1 10*3/uL (4.8-10.8)
[2017-07-14 00:39] LABS: PLATELET SUFFICIENCY NORMAL (NORMAL); TOTAL CELLS COUNTED 100 #CELLS
[2017-07-14 00:42] LABS: ALKALINE PHOSPHATASE 92 U/L (45-117); BUN 15 mg/dl (7-24); CHLORIDE 104 mmol/L (98-107); CREATININE 0.79 mg/dL (0.70-1.30); POTASSIUM 3.9 mmol/L (3.5-5.1); SGOT/AST 25 IU/L (3-35); SGPT/ALT 38 U/L (12-78); SODIUM 140 mmol/L (136-145); TOTAL PROTEIN 7.3 gm/dL (6.4-8.2)
[2017-07-14 01:31] LABS: LIPASE 35 U/L (73-393)
[2017-07-14 03:30] LABS: BILIRUBIN 1+ (NEGATIVE); BLOOD NEGATIVE (NEGATIVE); CLARITY SL CLOUDY (CLEAR); COLOR YELLOW (YELLOW); GLUCOSE NEGATIVE (NEGATIVE); KETONE NEGATIVE (NEGATIVE); LEUKO ESTERASE NEGATIVE (NEGATIVE); NITRITE NEGATIVE (NEGATIVE); PH 5.5 (5.0-9.0); SPECIFIC GRAVITY >= 1.030 (1.005-1.030); UROBILINOGEN 0.2 E.U./dl (0.2-1.0)
[2017-07-14 03:52] LABS: MUCOUS TRACE
== END 2017-07-14 04:50 | disposition home or self-care (01) ==
LOC: ED 23:11
PROVIDERS: Emergency Medicine
DX: R11.2 Nausea with vomiting, unspecified (principal); D72.829 Elevated white blood cell count, unspecified; E11.65 Type 2 diabetes mellitus with hyperglycemia; E11.10 Type 2 diabetes mellitus with ketoacidosis without coma; I25.10 Atherosclerotic heart disease of native coronary artery without angina pectoris; I10 Essential (primary) hypertension; Z79.82 Long term (current) use of aspirin; Z88.0 Allergy status to penicillin; Z90.49 Acquired absence of other specified parts of digestive tract

== ENCOUNTER 2017-07-17 15:46 | Emergency (ER) | payer OTHER ==
[~2017-07-17] VITALS: Ht 177.8 cm; Wt 97.5 kg
[2017-07-17 16:23] LABS: HEMATOCRIT 44.5 % (42.0-52.0); MEAN CELL VOLUME 91.8 fl (80.0-94.0); MEAN CORPUSCULAR HGB 30.9 pg (27.0-31.0); MEAN CORPUSCULAR HGB CONC 33.7 g/dl (33.0-37.0); PLATELET COUNT AUTOMATED 263 10*3/uL (130-400); RED BLOOD COUNT 4.85 10*6/uL (4.50-5.90); RED CELL DISTRI WIDTH 12.6 % (0-14.5); WHITE BLOOD COUNT 16.4 10*3/uL (4.8-10.8)
[2017-07-17 16:39] LABS: ALBUMIN 3.9 gm/dl (3.1-4.5); ALKALINE PHOSPHATASE 93 U/L (45-117); BUN 12 mg/dl (7-24); CHLORIDE 106 mmol/L (98-107); LIPASE 47 U/L (73-393); POTASSIUM 3.6 mmol/L (3.5-5.1); SGOT/AST 27 IU/L (3-35); SGPT/ALT 43 U/L (12-78); SODIUM 141 mmol/L (136-145); TOTAL PROTEIN 7.4 gm/dL (6.4-8.2)
[2017-07-17 16:44] LABS: PLATELET SUFFICIENCY NORMAL (NORMAL); TOTAL CELLS COUNTED 100 #CELLS
[2017-07-17 16:58] LABS: TROPONIN I < 0.015 ng/ml (<0.045)
[2017-07-17 17:04] LABS: BILIRUBIN NEGATIVE (NEGATIVE); BLOOD NEGATIVE (NEGATIVE); CLARITY CLEAR (CLEAR); COLOR YELLOW (YELLOW); GLUCOSE NEGATIVE (NEGATIVE); KETONE NEGATIVE (NEGATIVE); LEUKO ESTERASE NEGATIVE (NEGATIVE); NITRITE NEGATIVE (NEGATIVE); PH 5.5 (5.0-9.0); UROBILINOGEN 0.2 E.U./dl (0.2-1.0)
[2017-07-17 17:10] LABS: BACTERIA TRACE; WBC 0-2 wbc/hpf (0-5)
[2017-07-17] MEDS ORDERED: ZOFRAN ODT4 MG SL (17:10)
[2017-07-17] MEDS ORDERED: ZANTAC 150150 MG PO (17:10)
== END 2017-07-17 17:18 | disposition home or self-care (01) ==
LOC: ED 15:46
PROVIDERS: Nurse Practitioner Family
DX: B27.90 Infectious mononucleosis, unspecified without complication (principal); R11.2 Nausea with vomiting, unspecified; I25.10 Atherosclerotic heart disease of native coronary artery without angina pectoris; E11.10 Type 2 diabetes mellitus with ketoacidosis without coma; I10 Essential (primary) hypertension; I25.2 Old myocardial infarction; Z90.49 Acquired absence of other specified parts of digestive tract; Z95.5 Presence of coronary angioplasty implant and graft; Z98.890 Other specified postprocedural states; Z79.82 Long term (current) use of aspirin; Z79.4 Long term (current) use of insulin; Z88.0 Allergy status to penicillin

== ENCOUNTER 2018-10-20 16:47 | Emergency (ER) | payer OTHER ==
[~2018-10-20 16:47] MED LIST changes: +BASAG SOL SQ; +Clopidogrel75 MG PO; +HUMULIN R100 UNIT/1 SQ; -LEVEMIR10 ML SC; +LEVEMIR100 UNIT/1 SC; +VITAMIN D32000 UNI1 PO; +ZANTAC 150150 MG PO
[2018-10-20] MEDS ORDERED: FLONASE ALLERG9.9 ML NAS (17:36)
[2018-10-20] MEDS ORDERED: ALLEGRA ALLERG180 M2 PO (17:36)
== END 2018-10-20 17:50 | disposition home or self-care (01) ==
LOC: ED 16:47
DX: J30.9 Allergic rhinitis, unspecified (principal); E11.9 Type 2 diabetes mellitus without complications; I10 Essential (primary) hypertension; F17.200 Nicotine dependence, unspecified, uncomplicated; Z88.0 Allergy status to penicillin; Z79.899 Other long term (current) drug therapy; Z79.82 Long term (current) use of aspirin

== ENCOUNTER → 2019-03-23 | Outpatient (CLI) | payer OTHER ==
[~2019-03-23] MED LIST changes: +ALLEGRA ALLERG180 M2 PO; +FLONASE ALLERG9.9 ML NAS
== END | disposition home or self-care (01) ==
LOC: LAB 15:21
DX: R09.89 Other specified symptoms and signs involving the circulatory and respiratory systems (principal)

== ENCOUNTER → 2019-03-30 | Outpatient (CLI) | payer OTHER | END | disposition home or self-care (01) | LOC: CT 12:49 | DX: M47.814 Spondylosis without myelopathy or radiculopathy, thoracic region (principal); K44.9 Diaphragmatic hernia without obstruction or gangrene; N62 Hypertrophy of breast; R91.1 Solitary pulmonary nodule ==

== ENCOUNTER → 2019-11-06 | Outpatient (CLI) | payer OTHER ==
[2019-11-06 10:32] LABS: BUN 18 mg/dl (7-24); CREATININE 0.87 mg/dL (0.70-1.30)
== END | disposition home or self-care (01) ==
LOC: LAB 09:58 → CT 10:00
PROVIDERS: ATTEND Internal Medicine Critical Care Medicine
DX: Z01.812 Encounter for preprocedural laboratory examination (principal); R91.8 Other nonspecific abnormal finding of lung field; R59.0 Localized enlarged lymph nodes; R91.1 Solitary pulmonary nodule

== ENCOUNTER 2020-09-30 13:26 | Emergency (ER) | payer OTHER ==
[~2020-09-30] VITALS: Ht 180.3 cm; Wt 104.3 kg
[2020-09-30] MEDS ORDERED: CEPHALEXIN500 M1 PO ×3 (13:59→14:10)
== END 2020-09-30 14:02 | disposition home or self-care (01) ==
LOC: ED 13:26
DX: K62.89 Other specified diseases of anus and rectum (principal); Z88.0 Allergy status to penicillin

== ENCOUNTER 2020-12-19 08:48 | Emergency (ER) | payer OTHER ==
[~2020-12-19] VITALS: Ht 177.8 cm; Wt 104.3 kg
[~2020-12-19 08:48] MED LIST changes: +CEPHALEXIN500 M1 PO
[2020-12-19 09:31] LABS: BASO # 0.1 10*3/uL (0.0-0.1); BASO % 0.6 % (0.0-1.0); EOS # 0.2 10*3/uL (0.0-0.4); EOS % 2.8 % (1.0-4.0); HEMATOCRIT 45.3 % (42.0-52.0); LYMPH # 1.9 10*3/uL (1.3-4.4); LYMPH % 21.5 % (27.0-41.0); MEAN CELL VOLUME 90.2 fl (80.0-94.0); MEAN CORPUSCULAR HGB 30.1 pg (27.0-31.0); MEAN CORPUSCULAR HGB CONC 33.3 g/dl (33.0-37.0); MEAN PLATELET VOLUME 10.1 fl (9.6-12.3); MONO # 1.1 10*3/uL (0.1-1.0); MONO % 13.1 % (3.0-9.0); NEUT # 5.3 10*3/uL (2.3-7.9); NEUT % 61.8 % (47.0-73.0); PLATELET COUNT AUTOMATED 277 10*3/uL (130-400); RED BLOOD COUNT 5.02 10*6/uL (4.50-5.90); RED CELL DISTRI WIDTH 12.7 % (0-14.5); WHITE BLOOD COUNT 8.6 10*3/uL (4.8-10.8)
[2020-12-19 09:45] LABS: ALBUMIN 3.6 gm/dl (3.1-4.5); ALKALINE PHOSPHATASE 101 U/L (45-117); BUN 18 mg/dl (7-24); CHLORIDE 104 mmol/L (98-107); LIPASE 28 U/L (73-393); POTASSIUM 3.9 mmol/L (3.5-5.1); SGOT/AST 73 IU/L (3-35); SGPT/ALT 54 U/L (12-78); SODIUM 138 mmol/L (136-145); TOTAL PROTEIN 7.1 gm/dL (6.4-8.2)
[2020-12-19] MEDS ORDERED: PEPCID20 MG PO (11:38)
[2020-12-19] MEDS ORDERED: ZOFRAN4 MG PO (11:38)
== END 2020-12-19 11:43 | disposition home or self-care (01) ==
LOC: ED 08:48
PROVIDERS: Emergency Medicine
DX: R11.2 Nausea with vomiting, unspecified (principal); K21.9 Gastro-esophageal reflux disease without esophagitis; F17.200 Nicotine dependence, unspecified, uncomplicated; Z88.0 Allergy status to penicillin; Z79.899 Other long term (current) drug therapy

== ENCOUNTER 2020-12-31 11:37 | Emergency (ER) | payer OTHER ==
[~2020-12-31] VITALS: Wt 104.3 kg
[~2020-12-31 11:37] MED LIST changes: +ZOFRAN4 MG PO
[2020-12-31] MEDS ORDERED: OMNICEF300 MG PO (13:59)
== END 2020-12-31 14:01 | disposition home or self-care (01) ==
LOC: ED 11:37
DX: H66.91 Otitis media, unspecified, right ear (principal); H72.91 Unspecified perforation of tympanic membrane, right ear; E11.9 Type 2 diabetes mellitus without complications; I25.2 Old myocardial infarction; Z88.0 Allergy status to penicillin; Z79.2 Long term (current) use of antibiotics; Z79.899 Other long term (current) drug therapy; Z79.82 Long term (current) use of aspirin; Z79.4 Long term (current) use of insulin; Z98.890 Other specified postprocedural states; Z90.49 Acquired absence of other specified parts of digestive tract; Z95.5 Presence of coronary angioplasty implant and graft; Z87.891 Personal history of nicotine dependence

== ENCOUNTER → 2021-01-22 | Outpatient (CLI) | payer OTHER ==
[~2021-01-22] MED LIST changes: +OMNICEF300 MG PO
[2021-01-22 15:17] LABS: HEMATOCRIT 48.8 % (42.0-52.0); MEAN CELL VOLUME 93.7 fl (80.0-94.0); MEAN CORPUSCULAR HGB 30.9 pg (27.0-31.0); MEAN PLATELET VOLUME 9.9 fl (9.6-12.3); RED BLOOD COUNT 5.21 10*6/uL (4.50-5.90); WHITE BLOOD COUNT 6.6 10*3/uL (4.8-10.8)
[2021-01-22 15:50] LABS: ALBUMIN 3.6 gm/dl (3.1-4.5); ALKALINE PHOSPHATASE 108 U/L (45-117); BUN 16 mg/dl (7-24); CHLORIDE 104 mmol/L (98-107); CHOLESTEROL 166 mg/dL (<200); CPK 152 U/L (39-308); CREATININE 0.92 mg/dL (0.70-1.30); LDL CHOLESTEROL 116 mg/dL (9-159); POTASSIUM 3.8 mmol/L (3.5-5.1); SGOT/AST 27 IU/L (3-35); SGPT/ALT 55 U/L (12-78); SODIUM 136 mmol/L (136-145); TOTAL PROTEIN 7.5 gm/dL (6.4-8.2); TRIGLYCERIDES 69 mg/dl (<150)
== END | disposition home or self-care (01) ==
LOC: LAB 14:55
PROVIDERS: ATTEND Family Medicine
DX: E11.9 Type 2 diabetes mellitus without complications (principal); I10 Essential (primary) hypertension; E78.00 Pure hypercholesterolemia, unspecified

== ENCOUNTER → 2021-02-04 | Outpatient (CLI) | payer OTHER | END | disposition home or self-care (01) | LOC: LAB 11:58 | PROVIDERS: ATTEND Family Medicine | DX: E11.9 Type 2 diabetes mellitus without complications (principal) ==

== ENCOUNTER 2021-02-17 19:18 | Emergency (ER) | payer OTHER ==
[~2021-02-17] VITALS: Ht 235 cm; Wt 106.6 kg
[2021-02-17 19:39] LABS: BASO # 0.1 10*3/uL (0.0-0.1); BASO % 0.5 % (0.0-1.0); EOS # 0.3 10*3/uL (0.0-0.4); EOS % 3.1 % (1.0-4.0); HEMATOCRIT 46.4 % (42.0-52.0); LYMPH # 2.9 10*3/uL (1.3-4.4); LYMPH % 30.4 % (27.0-41.0); MEAN CELL VOLUME 91.2 fl (80.0-94.0); MEAN CORPUSCULAR HGB 30.6 pg (27.0-31.0); MEAN CORPUSCULAR HGB CONC 33.6 g/dl (33.0-37.0); MEAN PLATELET VOLUME 9.8 fl (9.6-12.3); MONO # 1.3 10*3/uL (0.1-1.0); MONO % 13.5 % (3.0-9.0); NEUT # 4.9 10*3/uL (2.3-7.9); NEUT % 52.2 % (47.0-73.0); PLATELET COUNT AUTOMATED 258 10*3/uL (130-400); RED BLOOD COUNT 5.09 10*6/uL (4.50-5.90); RED CELL DISTRI WIDTH 12.9 % (0-14.5); WHITE BLOOD COUNT 9.4 10*3/uL (4.8-10.8)
[2021-02-17 19:55] LABS: ALBUMIN 3.6 gm/dl (3.1-4.5); ALKALINE PHOSPHATASE 90 U/L (45-117); BUN 15 mg/dl (7-24); CHLORIDE 110 mmol/L (98-107); CREATININE 0.87 mg/dL (0.70-1.30); SGOT/AST 29 IU/L (3-35); SGPT/ALT 44 U/L (12-78); SODIUM 140 mmol/L (136-145); TOTAL PROTEIN 7.2 gm/dL (6.4-8.2)
== END 2021-02-18 08:00 | disposition short-term general hospital (02) ==
LOC: ED 19:18
PROVIDERS: Internal Medicine
DX: I21.4 Non-ST elevation (NSTEMI) myocardial infarction (principal); F17.200 Nicotine dependence, unspecified, uncomplicated; Z88.0 Allergy status to penicillin; Z79.899 Other long term (current) drug therapy

== ENCOUNTER 2021-02-21 03:04 | Emergency (ER) | payer OTHER | END 2021-02-21 04:00 | disposition left against medical advice (07) | LOC: ED 03:04 | DX: R55 Syncope and collapse (principal); Z53.21 Procedure and treatment not carried out due to patient leaving prior to being seen by health care provider ==

== ENCOUNTER 2021-04-08 13:39 | Emergency (ER) | payer OTHER ==
[~2021-04-08] VITALS: Wt 107.5 kg
[2021-04-08 14:40] LABS: BASO % 0.4 % (0.0-1.0); EOS # 0.1 10*3/uL (0.0-0.4); EOS % 0.8 % (1.0-4.0); HEMATOCRIT 41.5 % (42.0-52.0); LYMPH # 1.3 10*3/uL (1.3-4.4); LYMPH % 12.2 % (27.0-41.0); MEAN CORPUSCULAR HGB 30.8 pg (27.0-31.0); MEAN CORPUSCULAR HGB CONC 34.2 g/dl (33.0-37.0); MEAN PLATELET VOLUME 9.7 fl (9.6-12.3); MONO # 0.9 10*3/uL (0.1-1.0); MONO % 8.3 % (3.0-9.0); NEUT % 78.1 % (47.0-73.0); PLATELET COUNT AUTOMATED 243 10*3/uL (130-400); RED BLOOD COUNT 4.61 10*6/uL (4.50-5.90); RED CELL DISTRI WIDTH 12.8 % (0-14.5); WHITE BLOOD COUNT 10.2 10*3/uL (4.8-10.8)
[2021-04-08 15:01] LABS: ALBUMIN 3.6 gm/dl (3.1-4.5); BUN 14 mg/dl (7-24); CHLORIDE 106 mmol/L (98-107); CREATININE 0.71 mg/dL (0.70-1.30); SGOT/AST 30 IU/L (3-35); SGPT/ALT 51 U/L (12-78); SODIUM 139 mmol/L (136-145); TOTAL PROTEIN 6.6 gm/dL (6.4-8.2)
[2021-04-08 15:02] LABS: ALKALINE PHOSPHATASE 85 U/L (45-117)
== END 2021-04-08 18:47 | disposition home or self-care (01) ==
LOC: ED 13:39
PROVIDERS: Physician Assistant
DX: R61 Generalized hyperhidrosis (principal); E11.9 Type 2 diabetes mellitus without complications; F17.200 Nicotine dependence, unspecified, uncomplicated; Z88.0 Allergy status to penicillin; Z90.49 Acquired absence of other specified parts of digestive tract; Z98.890 Other specified postprocedural states

== ENCOUNTER → 2021-04-14 | Outpatient (CLI) | payer OTHER ==
[2021-04-14 11:42] LABS: HEMATOCRIT 45.9 % (42.0-52.0); MEAN CELL VOLUME 91.8 fl (80.0-94.0); MEAN CORPUSCULAR HGB 30.6 pg (27.0-31.0); MEAN CORPUSCULAR HGB CONC 33.3 g/dl (33.0-37.0); MEAN PLATELET VOLUME 10.2 fl (9.6-12.3); WHITE BLOOD COUNT 10.4 10*3/uL (4.8-10.8)
[2021-04-14 12:31] LABS: ALBUMIN 3.7 gm/dl (3.1-4.5); ALKALINE PHOSPHATASE 97 U/L (45-117); BUN 13 mg/dl (7-24); CHLORIDE 111 mmol/L (98-107); CREATININE 0.79 mg/dL (0.70-1.30); SGOT/AST 19 IU/L (3-35); SGPT/ALT 45 U/L (12-78); SODIUM 142 mmol/L (136-145)
== END | disposition home or self-care (01) ==
LOC: LAB 11:23
PROVIDERS: ATTEND Family Medicine
DX: R55 Syncope and collapse (principal)

== ENCOUNTER → 2021-08-19 | Outpatient (CLI) | payer OTHER | END | disposition home or self-care (01) | LOC: RAD 09:52 | PROVIDERS: ATTEND Family Medicine | DX: K21.9 Gastro-esophageal reflux disease without esophagitis (principal); K44.9 Diaphragmatic hernia without obstruction or gangrene ==

== ENCOUNTER 2021-09-23 19:47 | Emergency (ER) | payer OTHER ==
[~2021-09-23] VITALS: Wt 104.3 kg
[2021-09-23 22:03] LABS: HEMATOCRIT 45.7 % (42.0-52.0); MEAN CELL VOLUME 89.6 fl (80.0-94.0); MEAN CORPUSCULAR HGB 31.2 pg (27.0-31.0); MEAN CORPUSCULAR HGB CONC 34.8 g/dl (33.0-37.0); MEAN PLATELET VOLUME 10.3 fl (9.6-12.3); PLATELET COUNT AUTOMATED 258 10*3/uL (130-400); RED CELL DISTRI WIDTH 12.9 % (0-14.5); WHITE BLOOD COUNT 21.6 10*3/uL (4.8-10.8)
[2021-09-23 22:08] LABS: MANUAL DIFF REFLEX YES
[2021-09-23 22:19] LABS: ACT PARTIAL THROMBO TIME 26.6 SECONDS (20.0-32.1)
[2021-09-23 22:20] LABS: ALKALINE PHOSPHATASE 108 U/L (45-117); BUN 22 mg/dl (7-24); CHLORIDE 104 mmol/L (98-107); CREATININE 0.76 mg/dL (0.70-1.30); LIPASE 41 U/L (73-393); POTASSIUM 4.3 mmol/L (3.5-5.1); SGOT/AST 34 IU/L (3-35); SGPT/ALT 60 U/L (12-78); SODIUM 133 mmol/L (136-145); TOTAL PROTEIN 6.9 gm/dL (6.4-8.2)
[2021-09-23 22:29] LABS: BASOPHILS 1 % (0-1); PLATELET SUFFICIENCY NORMAL (NORMAL); TOTAL CELLS COUNTED 100 #CELLS
[2021-09-23 22:30] LABS: TOXIC GRANULATION SLIGHT
== END 2021-09-24 04:03 | disposition home or self-care (01) ==
LOC: ED 19:47
PROVIDERS: Physician Assistant
DX: K52.9 Noninfective gastroenteritis and colitis, unspecified (principal); D72.829 Elevated white blood cell count, unspecified; Z88.0 Allergy status to penicillin; Z79.899 Other long term (current) drug therapy; Z90.49 Acquired absence of other specified parts of digestive tract; Z98.890 Other specified postprocedural states

== ENCOUNTER 2021-09-29 00:36 | Emergency (ER) | payer OTHER | END 2021-09-29 01:39 | disposition home or self-care (01) | LOC: ED 00:36 | DX: E11.649 Type 2 diabetes mellitus with hypoglycemia without coma (principal); I10 Essential (primary) hypertension; K21.9 Gastro-esophageal reflux disease without esophagitis; F17.200 Nicotine dependence, unspecified, uncomplicated; Z90.49 Acquired absence of other specified parts of digestive tract; Z79.4 Long term (current) use of insulin; Z79.899 Other long term (current) drug therapy; Z88.0 Allergy status to penicillin ==

== ENCOUNTER → 2022-04-09 | Outpatient (CLI) | payer OTHER ==
[2022-04-09 09:36] LABS: HEMATOCRIT 44.7 % (42.0-52.0); MEAN CELL VOLUME 92.7 fl (80.0-94.0); MEAN CORPUSCULAR HGB 31.5 pg (27.0-31.0); MEAN PLATELET VOLUME 9.7 fl (9.6-12.3); RED BLOOD COUNT 4.82 10*6/uL (4.50-5.90); RED CELL DISTRI WIDTH 12.8 % (0-14.5); WHITE BLOOD COUNT 13.2 10*3/uL (4.8-10.8)
[2022-04-09 09:55] LABS: ALKALINE PHOSPHATASE 94 U/L (46-116); BUN 9 mg/dl (9-23); CHLORIDE 102 mmol/L (98-107); CHOLESTEROL 109 mg/dL (<200); LDL CHOLESTEROL 58 mg/dL (9-159); POTASSIUM 3.7 mmol/L (3.4-5.1); SGPT/ALT 65 U/L (10-49); TOTAL PROTEIN 6.3 gm/dL (6.0-8.0); TRIGLYCERIDES 66 mg/dl (<150)
[2022-04-09 10:03] LABS: VITAMIN D, 25-HYDROXY 15.2 ng/mL (30-100)
== END | disposition home or self-care (01) ==
LOC: LAB 09:04
PROVIDERS: ATTEND Family Medicine
DX: E11.9 Type 2 diabetes mellitus without complications (principal); E78.00 Pure hypercholesterolemia, unspecified; E55.9 Vitamin D deficiency, unspecified; K21.9 Gastro-esophageal reflux disease without esophagitis; R10.9 Unspecified abdominal pain

== ENCOUNTER 2022-06-27 01:02 | Emergency (ER) | payer OTHER ==
[~2022-06-27] VITALS: Ht 180.3 cm; Wt 104.3 kg
[2022-06-27 01:39] LABS: BASO # 0.1 10*3/uL (0.0-0.1); BASO % 0.6 % (0.0-1.0); EOS # 0.3 10*3/uL (0.0-0.4); EOS % 2.1 % (1.0-4.0); HEMATOCRIT 48.7 % (42.0-52.0); LYMPH % 14.1 % (27.0-41.0); MEAN CORPUSCULAR HGB 31.8 pg (27.0-31.0); MEAN CORPUSCULAR HGB CONC 34.9 g/dl (33.0-37.0); MEAN PLATELET VOLUME 10.1 fl (9.6-12.3); MONO # 1.3 10*3/uL (0.1-1.0); MONO % 8.7 % (3.0-9.0); NEUT # 10.6 10*3/uL (2.3-7.9); NEUT % 74.2 % (47.0-73.0); PLATELET COUNT AUTOMATED 268 10*3/uL (130-400); RED BLOOD COUNT 5.35 10*6/uL (4.50-5.90); RED CELL DISTRI WIDTH 12.6 % (0-14.5); WHITE BLOOD COUNT 14.3 10*3/uL (4.8-10.8)
[2022-06-27 01:51] LABS: ACT PARTIAL THROMBO TIME 29.9 SECONDS (20.0-32.1); INTERNATIONAL NORM RATIO 1.1 (2.0-3.5)
[2022-06-27 01:56] LABS: ALKALINE PHOSPHATASE 109 U/L (46-116); BUN 13 mg/dl (9-23); CHLORIDE 100 mmol/L (98-107); LIPASE 22 U/L (12-53); POTASSIUM 4.2 mmol/L (3.4-5.1); SGPT/ALT 25 U/L (10-49); TOTAL PROTEIN 7.2 gm/dL (6.0-8.0)
[2022-06-27 03:48] LABS: BILIRUBIN Negative (Negative); BLOOD Negative (Negative); CLARITY Clear (Clear); COLOR Yellow (Yellow); GLUCOSE 3+ (Negative); KETONE 3+ (Negative); LEUKO ESTERASE Negative (Negative); NITRITE Negative (Negative); SPECIFIC GRAVITY >= 1.030 (1.001-1.030)
[2022-06-27 03:56] LABS: MUCOUS 1+; WBC 0-2 wbc/hpf (0-5)
[2022-06-27] MEDS ORDERED: PEPCID40 MG PO (04:18)
[2022-06-27] MEDS ORDERED: ONDANSETRON4 MG SL (04:18)
== END 2022-06-27 04:20 | disposition home or self-care (01) ==
LOC: ED 01:02
PROVIDERS: Emergency Medicine
DX: K52.9 Noninfective gastroenteritis and colitis, unspecified (principal); Z88.0 Allergy status to penicillin; Z90.49 Acquired absence of other specified parts of digestive tract; Z98.890 Other specified postprocedural states; F17.200 Nicotine dependence, unspecified, uncomplicated

== ENCOUNTER 2022-07-30 18:27 | Emergency (ER) | payer OTHER ==
[~2022-07-30] VITALS: Ht 180.3 cm; Wt 104.3 kg
[~2022-07-30 18:27] MED LIST changes: +ONDANSETRON4 MG SL; +PEPCID40 MG PO
[2022-07-30 20:09] LABS: BASO # 0.1 10*3/uL (0.0-0.1); BASO % 0.4 % (0.0-1.0); EOS # 0.3 10*3/uL (0.0-0.4); EOS % 2.2 % (1.0-4.0); HEMATOCRIT 48.4 % (42.0-52.0); LYMPH # 2.6 10*3/uL (1.3-4.4); LYMPH % 18.4 % (27.0-41.0); MEAN CELL VOLUME 92.2 fl (80.0-94.0); MEAN CORPUSCULAR HGB 31.2 pg (27.0-31.0); MEAN CORPUSCULAR HGB CONC 33.9 g/dl (33.0-37.0); MEAN PLATELET VOLUME 9.7 fl (9.6-12.3); MONO # 1.3 10*3/uL (0.1-1.0); MONO % 8.9 % (3.0-9.0); NEUT # 9.8 10*3/uL (2.3-7.9); NEUT % 69.7 % (47.0-73.0); PLATELET COUNT AUTOMATED 280 10*3/uL (130-400); RED BLOOD COUNT 5.25 10*6/uL (4.50-5.90); RED CELL DISTRI WIDTH 12.8 % (0-14.5); WHITE BLOOD COUNT 14.1 10*3/uL (4.8-10.8)
[2022-07-30 20:33] LABS: ALKALINE PHOSPHATASE 98 U/L (46-116); BUN 8 mg/dl (9-23); CHLORIDE 103 mmol/L (98-107); SGPT/ALT 36 U/L (10-49); TOTAL PROTEIN 7.1 gm/dL (6.0-8.0)
[2022-07-30] MEDS ORDERED: REGLAN10 M1 PO (22:38)
== END 2022-07-30 22:46 | disposition home or self-care (01) ==
LOC: ED 18:27
PROVIDERS: Student in an Organized Health Care Education/Training Program
DX: K29.70 Gastritis, unspecified, without bleeding (principal); E11.9 Type 2 diabetes mellitus without complications; Z88.0 Allergy status to penicillin; Z90.49 Acquired absence of other specified parts of digestive tract; Z98.890 Other specified postprocedural states; F17.200 Nicotine dependence, unspecified, uncomplicated

== ENCOUNTER 2022-08-31 20:44 | Emergency (ER) | payer OTHER ==
[~2022-08-31] VITALS: Ht 180.3 cm; Wt 104.3 kg
[~2022-08-31 20:44] MED LIST changes: +REGLAN10 M1 PO
[2022-08-31 20:58] LABS: HEMATOCRIT 49.1 % (42.0-52.0); MEAN CELL VOLUME 92.8 fl (80.0-94.0); MEAN CORPUSCULAR HGB 31.4 pg (27.0-31.0); MEAN CORPUSCULAR HGB CONC 33.8 g/dl (33.0-37.0); MEAN PLATELET VOLUME 9.7 fl (9.6-12.3); PLATELET COUNT AUTOMATED 300 10*3/uL (130-400); RED BLOOD COUNT 5.29 10*6/uL (4.50-5.90); RED CELL DISTRI WIDTH 12.9 % (0-14.5); WHITE BLOOD COUNT 23.3 10*3/uL (4.8-10.8)
[2022-08-31 20:59] LABS: MANUAL DIFF REFLEX YES
[2022-08-31 21:22] LABS: PLATELET SUFFICIENCY NORMAL (NORMAL); TOTAL CELLS COUNTED 100 #CELLS
[2022-08-31 21:25] LABS: ALKALINE PHOSPHATASE 99 U/L (46-116); BUN 10 mg/dl (9-23); CHLORIDE 101 mmol/L (98-107); POTASSIUM 3.9 mmol/L (3.4-5.1); SGPT/ALT 35 U/L (10-49); TOTAL PROTEIN 7.4 gm/dL (6.0-8.0)
[2022-08-31 22:50] LABS: BILIRUBIN Negative (Negative); BLOOD Negative (Negative); CLARITY Cloudy (Clear); COLOR Yellow (Yellow); GLUCOSE Negative (Negative); KETONE Trace (Negative); LEUKO ESTERASE Negative (Negative); NITRITE Negative (Negative); PH 6.5 (4.5-8.0); SPECIFIC GRAVITY 1.025 (1.001-1.030)
[2022-08-31 23:12] LABS: HYALINE CAST 0-2; MUCOUS 2+; RBC 0-2 rbc/hpf (0-2)
== END 2022-09-01 01:18 | disposition left against medical advice (07) ==
LOC: ED 20:44
PROVIDERS: Emergency Medicine
DX: E11.649 Type 2 diabetes mellitus with hypoglycemia without coma (principal); R11.10 Vomiting, unspecified; I25.10 Atherosclerotic heart disease of native coronary artery without angina pectoris; I10 Essential (primary) hypertension; K21.9 Gastro-esophageal reflux disease without esophagitis; E78.00 Pure hypercholesterolemia, unspecified; Z90.49 Acquired absence of other specified parts of digestive tract; Z79.4 Long term (current) use of insulin; Z98.890 Other specified postprocedural states; F17.200 Nicotine dependence, unspecified, uncomplicated

== ENCOUNTER 2022-10-14 19:30 | Emergency (ER) | payer OTHER ==
[~2022-10-14] VITALS: Ht 180.3 cm; Wt 104.3 kg
[2022-10-14 20:40] LABS: BASO # 0.1 10*3/uL (0.0-0.1); BASO % 0.3 % (0.0-1.0); EOS # 0.1 10*3/uL (0.0-0.4); EOS % 0.9 % (1.0-4.0); HEMATOCRIT 51.9 % (42.0-52.0); LYMPH # 1.7 10*3/uL (1.3-4.4); LYMPH % 10.3 % (27.0-41.0); MEAN CELL VOLUME 97.6 fl (80.0-94.0); MEAN CORPUSCULAR HGB CONC 32.8 g/dl (33.0-37.0); MEAN PLATELET VOLUME 9.6 fl (9.6-12.3); MONO # 0.8 10*3/uL (0.1-1.0); MONO % 5.2 % (3.0-9.0); NEUT # 13.3 10*3/uL (2.3-7.9); PLATELET COUNT AUTOMATED 424 10*3/uL (130-400); RED BLOOD COUNT 5.32 10*6/uL (4.50-5.90); RED CELL DISTRI WIDTH 12.9 % (0-14.5); WHITE BLOOD COUNT 16.1 10*3/uL (4.8-10.8)
[2022-10-14 20:49] LABS: INTERNATIONAL NORM RATIO 1.1 (2.0-3.5)
[2022-10-14 21:06] LABS: ALKALINE PHOSPHATASE 96 U/L (46-116); BUN 6 mg/dl (9-23); CHLORIDE 105 mmol/L (98-107); LDH 203 U/L (120-246); LIPASE 50 U/L (12-53); POTASSIUM 3.6 mmol/L (3.4-5.1); SGPT/ALT 37 U/L (10-49); TOTAL PROTEIN 7.4 gm/dL (6.0-8.0)
== END 2022-10-14 22:31 | disposition home or self-care (01) ==
LOC: ED 19:30
PROVIDERS: Emergency Medicine
DX: R41.0 Disorientation, unspecified (principal); Z88.0 Allergy status to penicillin; Z90.49 Acquired absence of other specified parts of digestive tract; Z95.5 Presence of coronary angioplasty implant and graft; Z98.890 Other specified postprocedural states; F17.200 Nicotine dependence, unspecified, uncomplicated

== ENCOUNTER → 2022-10-29 | Outpatient (CLI) | payer OTHER ==
[2022-10-29 08:55] LABS: HEMATOCRIT 45.2 % (42.0-52.0); MEAN CORPUSCULAR HGB 32.3 pg (27.0-31.0); MEAN CORPUSCULAR HGB CONC 34.7 g/dl (33.0-37.0); MEAN PLATELET VOLUME 9.6 fl (9.6-12.3); RED BLOOD COUNT 4.86 10*6/uL (4.50-5.90); RED CELL DISTRI WIDTH 12.6 % (0-14.5); WHITE BLOOD COUNT 9.2 10*3/uL (4.8-10.8)
[2022-10-29 09:45] LABS: ALKALINE PHOSPHATASE 94 U/L (46-116); BUN 10 mg/dl (9-23); CHLORIDE 106 mmol/L (98-107); CHOLESTEROL 87 mg/dL (<200); CPK 303 U/L (34-171); LDL CHOLESTEROL 39 mg/dL (9-159); POTASSIUM 3.8 mmol/L (3.4-5.1); SGPT/ALT 49 U/L (10-49); TRIGLYCERIDES 56 mg/dl (<150)
[2022-10-29 10:11] LABS: VITAMIN D, 25-HYDROXY 36.3 ng/mL (30-100)
== END | disposition home or self-care (01) ==
LOC: LAB 08:41
PROVIDERS: ATTEND Family Medicine
DX: I25.10 Atherosclerotic heart disease of native coronary artery without angina pectoris (principal); I10 Essential (primary) hypertension; E78.00 Pure hypercholesterolemia, unspecified; E55.9 Vitamin D deficiency, unspecified; R53.83 Other fatigue

== ENCOUNTER → 2023-01-05 | Outpatient (CLI) | payer OTHER ==
[2023-01-05 09:14] LABS: BASO # 0.1 10*3/uL (0.0-0.1); BASO % 0.6 % (0.0-1.0); EOS # 0.4 10*3/uL (0.0-0.4); EOS % 4.5 % (1.0-4.0); HEMATOCRIT 46.5 % (42.0-52.0); LYMPH % 23.7 % (27.0-41.0); MEAN CELL VOLUME 92.1 fl (80.0-94.0); MEAN CORPUSCULAR HGB 31.9 pg (27.0-31.0); MEAN CORPUSCULAR HGB CONC 34.6 g/dl (33.0-37.0); MEAN PLATELET VOLUME 9.9 fl (9.6-12.3); MONO # 0.9 10*3/uL (0.1-1.0); NEUT # 5.2 10*3/uL (2.3-7.9); PLATELET COUNT AUTOMATED 265 10*3/uL (130-400); RED BLOOD COUNT 5.05 10*6/uL (4.50-5.90); RED CELL DISTRI WIDTH 12.4 % (0-14.5); WHITE BLOOD COUNT 8.5 10*3/uL (4.8-10.8)
[2023-01-05 09:38] LABS: ALKALINE PHOSPHATASE 89 U/L (46-116); BUN 7 mg/dl (9-23); CHLORIDE 109 mmol/L (98-107); CHOLESTEROL 108 mg/dL (<200); LDL CHOLESTEROL 56 mg/dL (9-159); POTASSIUM 4.2 mmol/L (3.4-5.1); SGPT/ALT 35 U/L (5-49); TOTAL PROTEIN 6.7 gm/dL (6.0-8.0); TRIGLYCERIDES 52 mg/dl (<150)
== END | disposition home or self-care (01) ==
LOC: LAB 08:35
PROVIDERS: ATTEND Nurse Practitioner Family
DX: I10 Essential (primary) hypertension (principal); I25.10 Atherosclerotic heart disease of native coronary artery without angina pectoris; H66.92 Otitis media, unspecified, left ear; E11.59 Type 2 diabetes mellitus with other circulatory complications; Z79.4 Long term (current) use of insulin

== ENCOUNTER → 2023-09-13 | Outpatient (CLI) | payer OTHER ==
[2023-09-13 13:59] LABS: BASO # 0.1 10*3/uL (0.0-0.1); BASO % 0.7 % (0.0-1.0); EOS # 0.4 10*3/uL (0.0-0.4); EOS % 3.8 % (1.0-4.0); HEMATOCRIT 47.3 % (42.0-52.0); LYMPH % 20.2 % (27.0-41.0); MEAN CELL VOLUME 93.8 fl (80.0-94.0); MEAN CORPUSCULAR HGB 31.5 pg (27.0-31.0); MEAN CORPUSCULAR HGB CONC 33.6 g/dl (33.0-37.0); MONO % 10.1 % (3.0-9.0); NEUT # 6.3 10*3/uL (2.3-7.9); NEUT % 64.8 % (47.0-73.0); PLATELET COUNT AUTOMATED 256 10*3/uL (130-400); RED BLOOD COUNT 5.04 10*6/uL (4.50-5.90); WHITE BLOOD COUNT 9.7 10*3/uL (4.8-10.8)
[2023-09-13 14:29] LABS: ALKALINE PHOSPHATASE 93 U/L (46-116); BUN 8 mg/dl (9-23); CHLORIDE 105 mmol/L (98-107); POTASSIUM 4.1 mmol/L (3.4-5.1); SGPT/ALT 34 U/L (5-49); TOTAL PROTEIN 6.9 gm/dL (6.0-8.0)
== END | disposition home or self-care (01) ==
LOC: LAB 13:42
PROVIDERS: ATTEND Nurse Practitioner Family
DX: I10 Essential (primary) hypertension (principal); E78.5 Hyperlipidemia, unspecified; E11.65 Type 2 diabetes mellitus with hyperglycemia; E66.9 Obesity, unspecified

== ENCOUNTER 2024-01-09 05:01 | Emergency (ER) | payer OTHER ==
[~2024-01-09] VITALS: Wt 108.9 kg
[2024-01-09] MEDS ORDERED: DEXTROSE 50% 25 GM/50 ML SYR IV ONE ×2 (06:10→07:05)
[2024-01-09 06:14] LABS: BASO # 0.1 10*3/uL (0.0-0.1); BASO % 0.4 % (0.0-1.0); EOS # 0.5 10*3/uL (0.0-0.4); EOS % 3.3 % (1.0-4.0); HEMATOCRIT 43.2 % (42.0-52.0); MEAN CELL VOLUME 93.1 fl (80.0-94.0); MEAN CORPUSCULAR HGB 31.7 pg (27.0-31.0); MEAN PLATELET VOLUME 10.3 fl (9.6-12.3); MONO # 1.5 10*3/uL (0.1-1.0); MONO % 10.4 % (3.0-9.0); NEUT # 9.4 10*3/uL (2.3-7.9); NEUT % 65.7 % (47.0-73.0); PLATELET COUNT AUTOMATED 239 10*3/uL (130-400); RED BLOOD COUNT 4.64 10*6/uL (4.50-5.90); RED CELL DISTRI WIDTH 12.5 % (0-14.5); WHITE BLOOD COUNT 14.3 10*3/uL (4.8-10.8)
[2024-01-09 06:15] LABS: BUN 15 mg/dl (9-23); CHLORIDE 109 mmol/L (98-107); POTASSIUM 3.8 mmol/L (3.4-5.1)
[2024-01-09 06:43] LABS: BILIRUBIN Negative (Negative); BLOOD Negative (Negative); CLARITY Clear (Clear); COLOR Yellow (Yellow); GLUCOSE 3+ (Negative); KETONE Negative (Negative); LEUKO ESTERASE Negative (Negative); NITRITE Negative (Negative); PH 6.5 (4.5-8.0); SPECIFIC GRAVITY 1.025 (1.001-1.030)
[2024-01-09 07:05] LABS: EPITHELIAL CELLS 0-2; WBC 0-2 wbc/hpf (0-5)
[2024-01-09] MEDS ORDERED: LOPRESSOR50 M1 PO (07:20)
[2024-01-09] MEDS ORDERED: CYMBALTA60 MG PO (07:21)
[2024-01-09] MEDS ORDERED: ATORVASTATIN CA80 M1 PO (07:21)
[2024-01-09] MEDS ORDERED: ZESTRIL10 MG PO (07:21)
[2024-01-09] MEDS ORDERED: PROTONIX40 MG PO (07:21)
[2024-01-09] MEDS ORDERED: ASPIRIN81 M1 PO (07:21)
[2024-01-09] MEDS ORDERED: COREG6.25 MG PO (07:22)
[2024-01-09] MEDS ORDERED: JARDIANCE10 MG PO (07:22)
[2024-01-09] MEDS ORDERED: TRESIBA100 UNIT/1 SQ (07:22)
[2024-01-09] MEDS ORDERED: NOVOLIN R100 UNIT/1 SQ (07:22)
[2024-01-09] MEDS ORDERED: CLARITIN10 MG PO (07:23)
== END 2024-01-09 09:12 | disposition home or self-care (01) ==
LOC: ED 05:01
PROVIDERS: Internal Medicine
DX: E11.649 Type 2 diabetes mellitus with hypoglycemia without coma (principal); R07.89 Other chest pain; F17.200 Nicotine dependence, unspecified, uncomplicated; Z88.0 Allergy status to penicillin; Z98.890 Other specified postprocedural states; Z90.49 Acquired absence of other specified parts of digestive tract; Z95.5 Presence of coronary angioplasty implant and graft

== ENCOUNTER 2024-04-07 09:07 | Emergency (ER) | payer OTHER ==
[~2024-04-07] VITALS: Ht 180.3 cm; Wt 108.9 kg
[~2024-04-07 09:07] MED LIST changes: +ASPIRIN81 M1 PO; +ATORVASTATIN CA80 M1 PO; +CLARITIN10 MG PO; +COREG6.25 MG PO; +CYMBALTA60 MG PO; +JARDIANCE10 MG PO; +LOPRESSOR50 M1 PO; +NOVOLIN R100 UNIT/1 SQ; +PROTONIX40 MG PO; +TRESIBA100 UNIT/1 SQ; +ZESTRIL10 MG PO
[2024-04-07] MEDS ORDERED: SODIUM CHLORIDE 0.9% 1,000 ML IV ONE (09:10)
[2024-04-07 09:33] LABS: BASO # 0.1 10*3/uL (0.0-0.1); BASO % 0.4 % (0.0-1.0); EOS # 0.5 10*3/uL (0.0-0.4); EOS % 3.3 % (1.0-4.0); HEMATOCRIT 46.4 % (42.0-52.0); MEAN CELL VOLUME 92.1 fl (80.0-94.0); MEAN CORPUSCULAR HGB 30.6 pg (27.0-31.0); MEAN CORPUSCULAR HGB CONC 33.2 g/dl (33.0-37.0); MEAN PLATELET VOLUME 9.8 fl (9.6-12.3); MONO # 1.4 10*3/uL (0.1-1.0); MONO % 10.3 % (3.0-9.0); NEUT # 10.5 10*3/uL (2.3-7.9); NEUT % 76.5 % (47.0-73.0); PLATELET COUNT AUTOMATED 226 10*3/uL (130-400); RED BLOOD COUNT 5.04 10*6/uL (4.50-5.90); WHITE BLOOD COUNT 13.7 10*3/uL (4.8-10.8)
[2024-04-07 09:49] LABS: BUN 15 mg/dl (9-23); CHLORIDE 103 mmol/L (98-107); POTASSIUM 3.5 mmol/L (3.4-5.1)
== END 2024-04-07 10:12 | disposition home or self-care (01) ==
LOC: ED 09:07
PROVIDERS: Emergency Medicine
DX: E11.649 Type 2 diabetes mellitus with hypoglycemia without coma (principal); I10 Essential (primary) hypertension; E78.5 Hyperlipidemia, unspecified; F17.200 Nicotine dependence, unspecified, uncomplicated; Z88.0 Allergy status to penicillin; Z90.49 Acquired absence of other specified parts of digestive tract; Z95.5 Presence of coronary angioplasty implant and graft; Z98.890 Other specified postprocedural states

== ENCOUNTER → 2024-05-16 | Outpatient (CLI) | payer OTHER ==
[~2024-05-16] MED LIST changes: +Regadenoson 0.4 MG/5 ML SYR IV ONE
== END | disposition home or self-care (01) ==
LOC: CARD 00:37
PROVIDERS: ATTEND Internal Medicine Cardiovascular Disease
DX: I44.4 Left anterior fascicular block (principal); R06.02 Shortness of breath; I25.2 Old myocardial infarction; Z95.5 Presence of coronary angioplasty implant and graft

== ENCOUNTER → 2024-05-22 | Outpatient (CLI) | payer OTHER ==
[~2024-05-22] MED LIST changes: -Regadenoson 0.4 MG/5 ML SYR IV ONE
== END ==
LOC: CARD 03:00
PROVIDERS: ATTEND Internal Medicine Cardiovascular Disease
DX: I25.2 Old myocardial infarction (principal); Z95.5 Presence of coronary angioplasty implant and graft

== ENCOUNTER 2024-08-31 20:10 | Emergency (ER) | payer OTHER ==
[~2024-08-31] VITALS: Ht 180.3 cm; Wt 113.4 kg
[2024-08-31 20:58] LABS: BASO # 0.1 10*3/uL (0.0-0.1); BASO % 0.5 % (0.0-1.0); EOS # 0.3 10*3/uL (0.0-0.4); EOS % 2.5 % (1.0-4.0); MEAN CELL VOLUME 90.5 fl (80.0-94.0); MEAN CORPUSCULAR HGB 30.8 pg (27.0-31.0); MEAN PLATELET VOLUME 9.5 fl (9.6-12.3); MONO # 1.3 10*3/uL (0.1-1.0); MONO % 9.7 % (3.0-9.0); NEUT # 9.3 10*3/uL (2.3-7.9); NEUT % 68.5 % (47.0-73.0); NUCLEATED RED BLOOD CELL 0.0 % (0.0-0.0); NUCLEATED RED BLOOD CELL 0.0 10*3/uL (0.0-0.0); PLATELET COUNT AUTOMATED 303 10*3/uL (130-400); RED CELL DISTRI WIDTH 12.8 % (0-14.5)
[2024-08-31 21:19] LABS: BUN 14 mg/dl (9-23)
== END 2024-08-31 22:53 | disposition home or self-care (01) ==
LOC: ED 20:10
PROVIDERS: Nurse Practitioner Family
DX: R07.89 Other chest pain (principal); I10 Essential (primary) hypertension; E78.00 Pure hypercholesterolemia, unspecified; E11.9 Type 2 diabetes mellitus without complications; I25.2 Old myocardial infarction; K21.9 Gastro-esophageal reflux disease without esophagitis; I25.10 Atherosclerotic heart disease of native coronary artery without angina pectoris; E66.9 Obesity, unspecified; Z87.891 Personal history of nicotine dependence; Z88.0 Allergy status to penicillin; Z79.899 Other long term (current) drug therapy; Z79.82 Long term (current) use of aspirin; Z79.4 Long term (current) use of insulin; Z68.30 Body mass index [BMI] 30.0-30.9, adult; Z98.890 Other specified postprocedural states; Z95.5 Presence of coronary angioplasty implant and graft